=== PATIENT | male | born 1995 | race Caucasian/White ===

== ENCOUNTER 2022-09-23 10:34 | Outpatient (OUT) | payer OTHER, MEDICAID, SELFPAY ==
--- NOTE | 2022-09-23 | CT_ITS ---
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 TECHNIQUE: Helical CT images of the temporal bones were obtained without IV contrast. Multiplanar reformats were generated at the scanner. Dose reduction technique used: Automated exposure control and/or adjustment of the mA and/or kV according to patient size and/or use of iterative reconstruction technique. FINDINGS: Right Side: External auditory canal: -Clear. Tympanic membrane: -No tympanic membrane thickening or definite defect. -Scutum is sharp. Middle ear/ossicles: -Middle ear cavity is clear. -Ossicles are within normal limits without evidence of erosion. Cochlea, vestibule, and semicircular canals: -No erosive or sclerotic changes. -No dehiscence of the superior semicircular canal. Vestibular aqueduct: -Normal caliber. Internal auditory canal: -Normal size and symmetric. Facial nerve canal: -Normal course and caliber. Vascular: -No significant anomaly. Mastoid air cells: -Clear. Petrous apex: -Negative. Temporomandibular joint: -No significant degenerative changes. Left Side: External auditory canal: -Moderate amount of presumed cerumen. Tympanic membrane: -No tympanic membrane thickening or definite defect. -Scutum is sharp. Middle ear/ossicles: -Middle ear cavity is clear. -Ossicles are within normal limits without evidence of erosion. Cochlea, vestibule, and semicircular canals: -No erosive or sclerotic changes. -No dehiscence of the superior semicircular canal. Vestibular aqueduct: -Normal caliber. Internal auditory canal: -Normal size and symmetric. Facial nerve canal: -Normal course and caliber. Vascular: -No significant anomaly. Mastoid air cells: -Clear. Petrous apex: -Negative. Temporomandibular joint: -No significant degenerative changes. Miscellaneous: -Medium sized probable mucus retention cyst in the right maxillary sinus. No layering sinus fluid. -Moderate leftward deviation of the nasal septum. CT/CT int auditory canals w/o con IMPRESSION: 1. Moderate amount of presumed cerumen in the left external auditory canal. 2. Remainder of bilateral temporal bones are within normal limits. Electronically authenticated by: DEANGELO GOMES Date: 09/25/2022 11:18
== END 2022-09-23 10:35 ==
LOC: CT 10-03 10:34
PROVIDERS: Visit Provider Otolaryngology
DX: H90.A12 Conductive hearing loss, unilateral, left ear with restricted hearing on the contralateral side (principal)
CPT/HCPCS: 70480

== ENCOUNTER 2022-10-31 07:58 | Outpatient (OUT) | payer OTHER, MEDICAID, SELFPAY ==
--- NOTE | 2022-10-31 08:40 | XR_ITS ---
The [address] [address] Patient Name: FILIBERTO MARTINEZ MRN: [id number] date: 1995 Sex: M Assigned Patient Location: SURGOUT Current Patient Location: [facility] Accession/Order Number: [id number] Exam Date: 10/31/2022 08:35 Report Date: 10/31/2022 09:18 At the request of: ADONAY MONTE Procedure: XR chest 2V EXAMINATION: XR chest 2V HISTORY: PRE OP EXAM COMPARISON: No relevant comparison available. TECHNIQUE: PA and lateral FINDINGS: LUNGS: No significant pulmonary parenchymal abnormalities. VASCULATURE: No increased pulmonary vasculature. PLEURA: No pneumothorax, effusion, or pleural thickening. CARDIAC: No cardiomegaly or cardiac silhouette abnormality. MEDIASTINUM: No visible mass or adenopathy. BONES: No fracture or visible bone lesion. OTHER: Negative. XR/XR chest 2V IMPRESSION: Normal examination. Electronically authenticated by: TUNDE GUERRERO Date: 10/31/2022 09:18
[2022-10-31 08:49] LABS: Basophils Percent Auto 0.3 % (0.2-2.0); Eosinophils Absolute Auto 0.1 10^3/uL (0.0-0.7); Eosinophils Percent Auto 1.4 % (0.9-7.0); Hematocrit 41.8 % (42.0-54.0); Hemoglobin 14.5 g/dL (14.0-18.0); Immature Granulocytes Abs Auto 0.01 10^3/uL (0.00-0.03); Immature Granulocytes Pct Auto 0.2 % (0.0-0.5); Lymphocytes Absolute Auto 1.3 10^3/uL (1.2-3.8); Lymphocytes Percent Auto 22.6 % (20.5-60.0); Mean Corpuscular HGB Conc 34.7 g/dL (29.9-35.2); Mean Corpuscular Hemoglobin 30.8 pg (25.9-34.0); Mean Corpuscular Volume 88.7 fL (80.0-94.0); Mean Platelet Volume 11.7 fL (9.5-13.5); Monocytes Absolute Auto 0.4 10^3/uL (0.3-0.8); Monocytes Percent Auto 6.1 % (1.7-12.0); Neutrophils Percent Auto 69.4 % (43.0-75.0); Platelet Count 140 10^3/uL (150-450); Red Blood Count 4.71 10^6/uL (4.70-6.10); Red Cell Distribution Width 12.1 % (11.0-15.0); White Blood Count 5.8 10^3/uL (4.0-11.0)
== END 2022-10-31 07:59 | disposition home or self-care (01) ==
LOC: PST 07:58
PROVIDERS: Visit Provider Otolaryngology
DX: Z01.810 Encounter for preprocedural cardiovascular examination (principal); Z01.812 Encounter for preprocedural laboratory examination; H69.83 Other specified disorders of Eustachian tube, bilateral; J34.89 Other specified disorders of nose and nasal sinuses
CPT/HCPCS: 71046; 85025

== ENCOUNTER 2022-11-07 06:54 | Day surgery (SDC) | payer OTHER, MEDICAID, SELFPAY ==
[2022-10-31 08:28] VITALS: BP 116/71; PULSE 58; RESP 14; TEMP 36.5; O2SAT 100; BMI 18.8
[2022-11-07] VITALS (10 sets, daily range): BP systolic 80–115; BP diastolic 31–68; PULSE 66–85; RESP 12–24; TEMP 36.1–36.8; O2SAT 97–100; BMI 18.4
--- NOTE | 2022-11-07 | OP_ITS ---
OPERATION DATE: ??11/07/2022 SURGEON:? Kelly De La Rosa M.D. PREOPERATIVE DIAGNOSIS:? Internal nasal lesion and bilateral eustachian tube dysfunction. POSTOPERATIVE DIAGNOSIS:? Internal nasal lesion and bilateral eustachian tube dysfunction. PROCEDURE:? Bilateral myringotomy and tubes with microdissection, placement of T-tubes, as well as cautery ablation of right nasal hemangioma. ANESTHESIA:? General endotracheal. COMPLICATIONS:? None. FINDINGS:? 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 INDICATIONS:? This 27-year-old man presented with life long history of chronic eustachian tube dysfunction and has had tympanostomy tubes placed four times in the past.? He also has been having recurrent epistaxis and had been noted in the office to have a right nasal hemangioma. PROCEDURE:? Patient identified in the holding area and taken back to the OR where he was placed in the supine position. ?After induction of general endotracheal anesthesia, the left ear was approached with the otomicroscope.? Cerumen was cleaned from the canal using a cerumen curette and an anterior radial myringotomy was performed.? A modified Griffin?s T-tube was folded and inserted through the myringotomy using microdissection.? Attention turned to the right ear and the same procedure performed.? Attention was then turned to the nose.? The 30 degree nasal endoscope was used to examine the anterior portion of both sides of the nose.? The hemangioma, as noted in the office, was noted in the right nasal valve region.? This was ablated using suction cautery.? There was scan bleeding controlled with suction cautery.? Antibiotic ointment was placed over the ablation site and the patient was awakened and taken to the recovery room in good condition. SHYAM
[2022-11-07] MEDS: LACTATED RINGER'S SOLUTION 1,000 ML 50 ML IV (08:04)
[2022-11-07] MEDS: SCOPOLAMINE 1 MG/3 DAYS TRANSDERM PATCH 1 PATCH TD (08:42)
[2022-11-07] MEDS: BACITRACIN OINTMENT 28.4 GM TUBE 1 APPLIC TOPICAL (09:20)
== END 2022-11-07 10:37 | disposition home or self-care (01) ==
PROVIDERS: Visit Provider Otolaryngology
PROC: (CPT 126; principal; 2022-11-07 08:10)
PROC: (CPT 126; 2022-11-07 08:10)
DX: H69.83 Other specified disorders of Eustachian tube, bilateral (principal); J34.89 Other specified disorders of nose and nasal sinuses; D18.09 Hemangioma of other sites; J45.909 Unspecified asthma, uncomplicated
CPT/HCPCS: 31238; 69436; 36415; J2704